=== PATIENT | male | born 1945 | race African-American/Black ===

== ENCOUNTER 2016-09-24 16:39 | Emergency (ER) | payer MEDICARE, MEDICAID ==
[~2016-09-24] VITALS: Ht 175.3 cm; Wt 95.0 kg
[2016-09-24] MEDS ORDERED: ACETAMINOPHEN 325MG TABLET PO ONE (21:15)
[2016-09-24 21:57] VITALS: BP 129/70
== END 2016-09-24 23:49 | disposition home or self-care (01) ==
LOC: ER 16:51
DX: M54.5 Low back pain (principal); M25.562 Pain in left knee; J45.909 Unspecified asthma, uncomplicated; V49.9XXA Car occupant (driver) (passenger) injured in unspecified traffic accident, initial encounter; Y93.89 Activity, other specified; Y99.8 Other external cause status; Y92.410 Unspecified street and highway as the place of occurrence of the external cause
CPT/HCPCS: 72100; 73010; 73562; 99284